=== PATIENT | female | born 1980 | race Caucasian/White ===

== ENCOUNTER 2018-11-26 05:26 | Observation (INO) | payer MEDICAID ==
[2018-11-26] MEDS ORDERED: LACTATED RINGERS 500 ML IV ONE (05:48)
[2018-11-26] MEDS ORDERED: LACTATED RINGERS 1,000 ML ONE ×4 (06:27→19:45)
[2018-11-26] MEDS ORDERED: CELESTONE SOLUSPAN IM ONE (07:10)
[2018-11-26 07:17] LABS: Bilirubin,Urine NEG (Negative); Blood,Urine MOD (Negative); Color,Urine Straw (Yellow); Mucus,Urine FEW /HPF; Protein,Urine <15 mg/dL mg/dL (Negative); Urobilinogen,Urine < 2.0 mg/dL (<2.0)
[2018-11-26] MEDS: BRETHINE SUB-Q SCH ×3 (07:34→09:28)
[2018-11-26 07:38] LABS: Hematocrit 35.5 % (30.3-42.9); Mean Corpuscular HGB Conc 34 % (30-34); Mean Corpuscular Volume 86 fl (79-97); Platelet Count 266 K/mm3 (140-440); Red Blood Count 4.14 M/mm3 (3.65-5.03); Red Cell Distribution Width 13.8 % (13.2-15.2)
[2018-11-26 07:49] LABS: INR 0.85 (0.87-1.13)
[2018-11-26 07:50] LABS: Partial Thromboplastin Time 29.1 Sec. (24.2-36.6)
--- NOTE | 2018-11-26 08:50 | Ultrasound Report ---
EXAM: US OB LIMITED HISTORY: R/O Abruption TECHNIQUE: Brennan scale imaging, duplex Doppler and color flow Doppler imaging are performed with a cur vilinear transducer. COMPARISON: None available. FINDINGS: There is a single IUP in cephalic presentation. The estimated heart rate is 176 beats per minut e. There is a anterior placenta, without evidence for placenta previa or abruption. The ovaries are not visualized. No free fluid is seen in the pelvis. IMPRESSION: 1. Single live in cephalic presentation. 2. The estimated heart rate is 176 beats per minute. 3. Anterior placenta without evidence for placental previa or abruption. This document is electronically signed by Ashley Hook MD., November 26 2018 08:48:22 AM ET
[2018-11-26] MEDS: DECADRON IM SCH ×2 (09:07→21:35)
[2018-11-26] MEDS: AMPICILLIN/NS 2 GM/100 ML 2 GM/100 ML BAG IV SCH ×4 (09:10→23:59)
--- NOTE | 2018-11-26 11:24 | History and Physical Report ---
History of Present Illness Date of examination: 11/26/18 Date of admission: 11/26/18 05:48 Chief complaint: bleeding and contractions History of present illness: This is a 37 yo at 35+4 weeks came in last night with c/o vaginal bleeding. patient stated that she went to bathroom and blood in toilet came in and no bleeding noted some dark blood in vaults. No active bleeding. She was also lizz q3 and was admitted for observation. her cervix was noted to be 1 cm. Past History Past Medical History: no pertinent history Past Surgical History: no surgical history Family/Genetic History: none Social history: single. denies: smoking, alcohol abuse, prescription drug abuse - Obstetrical History Expected Date of Delivery: 11/26/18 Actual Gestation: 40 Week(s) 0 Day(s) : 1 Para: 0 Hx # Term Pregnancies: 0 Number of Pregnancies: 0 Spontaneous Abortions: 0 Induced : 0 Number of Living Children: 0 Medications and Allergies Allergies Allergy/AdvReac Type Severity Reaction Status Date / Time No Known Allergies Allergy Unverified 11/26/18 05:48 Home Medications Medication Instructions Recorded Confirmed Last Taken Type Formula Tablet 1 tab PO DAILY 11/26/18 11/26/18 11/25/18 22:00 History Active Meds: Active Medications Dexamethasone (Decadron) 4 mg IM Q12HR [facility] Last Admin: 11/26/18 09:07 Dose: 4 mg Documented by: Ampicillin Sodium (Polycillin/Ns 2 Gm/100 Ml) 2 gm in 100 mls @ 100 mls/hr IV Q6HR [facility]; Protocol Last Admin: 11/26/18 09:10 Dose: 100 mls/hr Documented by: Terbutaline Sulfate (Brethine) 0.25 mg SUB-Q Q20MIN [facility] Stop: 11/28/18 07:01 Last Admin: 11/26/18 09:28 Dose: 0.25 mg Documented by: Review of Systems All systems: negative Genitourinary: vaginal bleeding, contractions - Vital Signs Vital signs: Vital Signs Pulse BP 101 H 106/71 11/26/18 05:46 11/26/18 05:46 Temp Pulse Resp BP Pulse Ox 96.7 F L 98 H 18 111/68 97 11/26/18 08:43 11/26/18 10:54 11/26/18 08:43 11/26/18 08:43 11/26/18 10:54 - Physical Exam Breasts: Positive: normal Cardiovascular: Regular rate, Normal S1 Lungs: Positive: Clear to auscultation, Normal air movement Abdomen: Positive: normal appearance, soft, normal bowel sounds. Negative: distention, tenderness, guarding Genitourinary (Female): Positive: normal external genitalia, normal perenium Uterus: Positive: normal size Deep Tendon Reflex Grade: Normal +2 - Obstetrical FHR: category 1 Cervical Dilatation: 1 Cervical Effacement Percentage: 40 station: -3 Uterine Contraction Pattern: Irregular Uterine Tone Measurement Phase: Contraction Uterine Contraction Intensity: Mild Results Result Diagrams: 11/26/18 07:23 Abnormal lab results 11/26/18 Range/Units 07:23 PT 12.1 L (12.2-14.9) Sec. INR 0.85 L (0.87-1.13) All other labs normal. Ultrasound: report reviewed Assessment and Plan A/P IUP 35+4 weeks GBS unknown- Amp started PT contractions; s/p terb x2 no change in cervix Dexa given x 1 and will need 4 doses for lung maturity close monitor of and maternal status consulted with high risk ( [facility])
[2018-11-27] MEDS ORDERED: LACTATED RINGERS 1,000 ML ONE (02:59)
[2018-11-27] MEDS ORDERED: LACTATED RINGERS 1,000 ML IV SCH (04:00)
[2018-11-27] MEDS: AMPICILLIN/NS 2 GM/100 ML 2 GM/100 ML BAG IV SCH (06:08)
--- NOTE | 2018-11-27 08:34 | Progress Note ---
Assessment and Plan - Patient Problems (1) Vaginal bleeding Current Visit: Yes Status: Acute Plan to address problem: patient remains clinically stable pelvic rest for duration of Subjective - Subjective Date of service: 11/27/18 Principal diagnosis: vaginal bleeding Interval history: Patient denies any further vaginal bleeding. She denies regular contractions. U/S did not demonstrate any evidence of abruption. Patient reports: no new complaints Objective - Vital Signs Vital Signs: Vital Signs - 12hr 11/27/18 11/27/18 11/27/18 00:02 02:01 02:06 Temperature Pulse Rate 72 71 70 Respiratory Rate Blood Pressure 106/56 O2 Sat by Pulse 98 97 Oximetry 11/27/18 11/27/18 11/27/18 02:11 02:16 02:22 Temperature Pulse Rate 73 71 70 Respiratory Rate Blood Pressure O2 Sat by Pulse 98 97 97 Oximetry 11/27/18 11/27/18 11/27/18 02:27 02:32 02:37 Temperature Pulse Rate 71 75 77 Respiratory Rate Blood Pressure O2 Sat by Pulse 97 97 96 Oximetry 11/27/18 11/27/18 11/27/18 02:42 02:50 02:55 Temperature Pulse Rate 71 83 73 Respiratory Rate Blood Pressure O2 Sat by Pulse 97 97 98 Oximetry 11/27/18 11/27/18 11/27/18 03:00 03:05 03:10 Temperature Pulse Rate 70 74 76 Respiratory Rate Blood Pressure O2 Sat by Pulse 97 97 97 Oximetry 11/27/18 11/27/18 11/27/18 03:15 03:20 03:25 Temperature Pulse Rate 75 67 74 Respiratory Rate Blood Pressure O2 Sat by Pulse 98 97 96 Oximetry 11/27/18 11/27/18 11/27/18 03:30 03:35 03:44 Temperature Pulse Rate 80 75 69 Respiratory Rate Blood Pressure O2 Sat by Pulse 96 96 99 Oximetry 11/27/18 11/27/18 11/27/18 03:49 03:54 03:59 Temperature Pulse Rate 69 73 75 Respiratory Rate Blood Pressure O2 Sat by Pulse 97 97 97 Oximetry 11/27/18 11/27/18 11/27/18 04:04 04:09 04:14 Temperature Pulse Rate 70 83 73 Respiratory Rate Blood Pressure O2 Sat by Pulse 97 98 97 Oximetry 03/11/19 03/11/19 03/11/19 04:18 04:19 04:20 Temperature 98 F Pulse Rate 73 74 Respiratory 16 Rate Blood Pressure 102/60 O2 Sat by Pulse 96 Oximetry 11/27/18 11/27/18 11/27/18 04:24 04:29 04:34 Temperature Pulse Rate 77 76 71 Respiratory Rate Blood Pressure O2 Sat by Pulse 97 96 97 Oximetry 11/27/18 11/27/18 11/27/18 04:39 04:44 05:00 Temperature Pulse Rate 74 78 Respiratory Rate Blood Pressure O2 Sat by Pulse 96 97 97 Oximetry 11/27/18 11/27/18 11/27/18 05:05 05:10 05:15 Temperature Pulse Rate 58 L 65 66 Respiratory Rate Blood Pressure O2 Sat by Pulse 98 98 97 Oximetry 11/27/18 11/27/18 11/27/18 05:20 05:25 05:30 Temperature Pulse Rate 72 70 74 Respiratory Rate Blood Pressure O2 Sat by Pulse 98 96 96 Oximetry 11/27/18 11/27/18 11/27/18 05:35 05:40 05:45 Temperature Pulse Rate 72 86 76 Respiratory Rate Blood Pressure O2 Sat by Pulse 98 97 96 Oximetry 11/27/18 11/27/18 11/27/18 05:47 05:50 05:55 Temperature Pulse Rate 76 70 79 Respiratory Rate Blood Pressure O2 Sat by Pulse 94 96 96 Oximetry 11/27/18 11/27/18 11/27/18 05:57 06:00 06:05 Temperature Pulse Rate 77 69 72 Respiratory Rate Blood Pressure O2 Sat by Pulse 94 96 96 Oximetry 11/27/18 11/27/18 11/27/18 06:10 06:15 06:20 Temperature Pulse Rate 77 78 81 Respiratory Rate Blood Pressure O2 Sat by Pulse 96 96 96 Oximetry 11/27/18 11/27/18 11/27/18 06:25 06:30 06:32 Temperature Pulse Rate 70 70 73 Respiratory Rate Blood Pressure O2 Sat by Pulse 97 97 93 Oximetry 11/27/18 11/27/18 11/27/18 06:35 06:40 06:45 Temperature Pulse Rate 70 71 74 Respiratory Rate Blood Pressure O2 Sat by Pulse 97 97 96 Oximetry 11/27/18 11/27/18 11/27/18 06:50 06:55 07:00 Temperature Pulse Rate 75 72 70 Respiratory Rate Blood Pressure O2 Sat by Pulse 96 97 98 Oximetry 11/27/18 11/27/18 11/27/18 07:05 07:10 07:15 Temperature Pulse Rate 72 68 80 Respiratory Rate Blood Pressure O2 Sat by Pulse 97 98 97 Oximetry 11/27/18 11/27/18 11/27/18 07:20 07:25 07:30 Temperature Pulse Rate 63 79 72 Respiratory Rate Blood Pressure O2 Sat by Pulse 96 97 98 Oximetry 11/27/18 11/27/18 11/27/18 07:35 07:40 07:50 Temperature Pulse Rate 69 69 76 Respiratory Rate Blood Pressure O2 Sat by Pulse 98 99 96 Oximetry 11/27/18 11/27/18 11/27/18 07:55 08:00 08:05 Temperature Pulse Rate 59 L 65 62 Respiratory Rate Blood Pressure O2 Sat by Pulse 98 97 97 Oximetry 11/27/18 11/27/18 11/27/18 08:11 08:25 08:30 Temperature Pulse Rate 71 74 82 Respiratory Rate Blood Pressure O2 Sat by Pulse 98 98 98 Oximetry - Labs Labs: Abnormal Labs 11/26/18 07:23 PT 12.1 L INR 0.85 L
--- NOTE | 2018-11-27 08:36 | Discharge Summary ---
Providers - Providers Date of Admission: 11/26/18 05:48 Date of discharge: 11/27/18 Attending physician: TEX DELVALLE MD Primary care physician: TEX DELVALLE MD Hospitalization Reason for admission: vaginal bleeding Discharge diagnosis: other (Bleeding in ) Hospital course: Patient admitted for vaginal bleeding. Ultrasound did not demonstrate an abruption. Patient received steroids during hospitalization. She remained clinically stable and bleeding ceased. Condition at discharge: Good Disposition: DC-01 TO HOME OR SELFCARE - Discharge Diagnoses (1) Vaginal bleeding Status: Acute Plan - Provider Discharge Summary Activity: no sex for 6 weeks, no heavy lifting 4 weeks, no strenuous exercise Diet: routine Instructions: routine Additional instructions: [] Smoking cessation referral if applicable(refer to patient education folder for contact #) [] Refer to [facility] Booklet Call your doctor immediately for: * Fever > 100.5 * Heavy vaginal bleeding ( >1 pad per hour) * Severe persistent headache * Shortness of breath * Reddened, hot, painful area to leg or breast * schedule OB visit in one week - Follow up plan
[2018-11-27 09:07] LABS: Hematocrit 32.9 % (30.3-42.9); Hemoglobin 11.2 gm/dl (10.1-14.3); Mean Corpuscular HGB Conc 34 % (30-34); Mean Corpuscular Volume 86 fl (79-97); Platelet Count 258 K/mm3 (140-440); Red Blood Count 3.82 M/mm3 (3.65-5.03); Red Cell Distribution Width 13.8 % (13.2-15.2)
[2018-11-27] MEDS: DECADRON IM SCH (09:30)
[2018-11-27] MEDS ORDERED: PRENATAL VITAMIN PO SCH (10:00)
[2018-11-27 11:28] VITALS: BP 106/58
== END 2018-11-27 11:50 | disposition home or self-care (01) ==
LOC: TRG 05:26 → LD 05:48 → TRG 08:34
PROVIDERS: ADMIT Obstetrics & Gynecology; ATTEND Obstetrics & Gynecology
DX: O62.9 Abnormality of forces of labor, unspecified (principal); O46.93 Antepartum hemorrhage, unspecified, third trimester; O48.0 Post-term pregnancy; Z3A.40 40 weeks gestation of pregnancy
CPT/HCPCS: 36415; 76815; 81001; 85027; 85610; 85730; 86850; 86900; 86901; 87116; 96365; 96366; 96372; G0378; J0290; J1100; J3105; J7120; 96360

== ENCOUNTER 2018-12-16 22:51 | Inpatient (IN) | payer MEDICAID ==
[2018-12-16] MEDS ORDERED: LACTATED RINGERS 1,000 ML ONE (23:50)
[2018-12-17] MEDS ORDERED: BRETHINE IVP PRN (01:38)
[2018-12-17] MEDS ORDERED: BRETHINE SUB-Q PRN (01:38)
[2018-12-17] MEDS ORDERED: MINERAL OIL PO PRN (01:38)
[2018-12-17] MEDS ORDERED: PITOCin/NS 20 UNIT/1000ML DRIP 20 UNITS/1,000 ML BAG IV SCH (02:00)
[2018-12-17] MEDS: AMPICILLIN/NS 1 GM/50 ML 1 GM/50 ML BAG IV SCH ×5 (02:47→18:47)
[2018-12-17] MEDS: LACTATED RINGERS 1,000 ML IV SCH ×3 (03:25→20:35)
[2018-12-17 04:13] LABS: Hematocrit 37.8 % (30.3-42.9); Hemoglobin 11.6 gm/dl (10.1-14.3); Mean Corpuscular Volume 96 fl (79-97); Red Blood Count 3.95 M/mm3 (3.65-5.03)
[2018-12-17 04:14] LABS: Mean Corpuscular HGB Conc 31 % (30-34); Platelet Count 318 K/mm3 (140-440)
[2018-12-17] MEDS: STADOL IV PRN ×2 (06:03→13:27)
--- NOTE | 2018-12-17 09:40 | History and Physical Report ---
History of Present Illness Date of examination: 12/17/18 Date of admission: 12/17/18 01:47 Chief complaint: I'm having contractions History of present illness: Pt is a 37 year old at 38 weeks, who presents with complaint of contractions and constant pain. Patient was reported to have changed her cervix in triage, however, she has had not had any further cervical change. Past History Past Medical History: no pertinent history Past Surgical History: no surgical history Social history: - Obstetrical History Expected Date of Delivery: 12/27/18 Actual Gestation: 38 Week(s) 4 Day(s) : 1 Medications and Allergies Allergies Allergy/AdvReac Type Severity Reaction Status Date / Time No Known Allergies Allergy Verified 12/16/18 23:09 Home Medications Medication Instructions Recorded Confirmed Last Taken Type Formula Tablet 1 tab PO DAILY 11/26/18 11/26/18 11/25/18 22:00 History Active Meds: Active Medications Butorphanol Tartrate (Stadol) 1 mg IV Q2H PRN PRN Reason: Pain, Moderate (4-6) Last Admin: 12/17/18 06:03 Dose: 1 mg Documented by: Ephedrine Sulfate (Ephedrine Sulfate) 10 mg IV Q2M PRN PRN Reason: Hypotension Ampicillin Sodium (Ampicillin/Ns 1 Gm/50 Ml) 1 gm in 50 mls @ 100 mls/hr IV Q4HR [facility]; Protocol Last Admin: 12/17/18 06:04 Dose: 100 mls/hr Documented by: Lactated Ringer's (Lactated Ringers) 1,000 mls @ 125 mls/hr IV DIRECT [facility] Last Admin: 12/17/18 03:25 Dose: 125 mls/hr Documented by: Oxytocin/Sodium Chloride (Pitocin/Ns 20 Unit/1000ml Drip) 20 units in 1,000 mls @ 125 mls/hr IV DIRECT [facility] Mineral Oil (Mineral Oil) 30 ml PO QHS PRN PRN Reason: Constipation Terbutaline Sulfate (Brethine) 0.25 mg SUB-Q ONCE PRN PRN Reason: Hyperstimulation/Hypertonicity Terbutaline Sulfate (Brethine) 0.25 mg IVP ONCE PRN PRN Reason: Hyperstimulation/Hypertonicity Review of Systems All systems: negative Ears, nose, mouth and throat: deferred Breasts: deferred Genitourinary: deferred - Vital Signs Vital signs: Vital Signs Pulse BP 92 H 109/73 12/16/18 23:08 12/16/18 23:08 Temp Pulse Resp BP Pulse Ox 97.0 F L 81 18 112/69 12/17/18 02:36 12/17/18 09:13 12/17/18 02:36 12/17/18 09:13 - Physical Exam Breasts: Cardiovascular: Regular rate, Normal S1, Normal S2 Lungs: Positive: Clear to auscultation, Normal air movement Abdomen: Positive: normal appearance, soft, normal bowel sounds. Negative: distention, tenderness Genitourinary (Female): Positive: normal external genitalia, normal perenium Vulva: both: normal Vagina: Positive: normal moisture. Negative: discharge Cervix: Negative: lesion, discharge Uterus: Positive: normal size, normal contour Adnexa: both: normal Anus/Rectum: Positive: normal perianal skin, heme negative. Negative: rectal mass, hemorrhoids Extremities: Deep Tendon Reflex Grade: Normal +2 - Obstetrical FHR: auscultation normal Cervical Dilatation: 2.5 Cervical Effacement Percentage: 80 station: -2 Uterine Contraction Frequency (min): 4 Uterine Contraction Pattern: Regular Uterine Contraction Intensity: Moderate Results Result Diagrams: 12/17/18 03:10 Abnormal lab results 12/17/18 Range/Units 03:10 WBC 11.8 H (4.5-11.0) K/mm3 RDW 27.0 H (13.2-15.2) % All other labs normal. Assessment and Plan IUP at 38.4 weeks in very early labor. Admit for augmentation of labor as patient states the pain is too intense to go home. Anticipate .
[2018-12-17] MEDS ORDERED: PRENATAL VITAMIN PO NR (10:04)
[2018-12-17] MEDS ORDERED: NARCAN 2 MG/2 ML IV PRN (19:34)
--- NOTE | 2018-12-17 19:34 | Anesthesia Consultation ---
Anesthesia Consult and Med Hx Date of service: 12/17/18 - Airway Anesthetic Teeth Evaluation: Good ROM Head & Neck: Adequate Mental/Hyoid Distance: Adequate Mallampati Class: Class II Intubation Access Assessment: Probably Good - Pulmonary Exam CTA: Yes - Cardiac Exam Cardiac Exam: RRR - Pre-Operative Health Status ASA Pre-Surgery Classification: ASA2 Proposed Anesthetic Plan: Epidural - Pulmonary Hx Asthma: No COPD: No Hx Pneumonia: No - Cardiovascular System Hx Hypertension: No - Central Nervous System Hx Seizures: No Hx Psychiatric Problems: No - Endocrine Hx Renal Disease: No Hx End Stage Renal Disease: No Hx Hypothyroidism: No Hx Hyperthyroidism: No - Hematic Hx Anemia: No Hx Sickle Cell Disease: No - Other Systems Hx Alcohol Use: No
[2018-12-17] MEDS ORDERED: XYLOCAINE 2%/ EPI 1:200,000 INFILTRATI ONE (20:50)
[2018-12-17] MEDS: fentaNYL-BUPIV 2 MCG/ML-0.125% 200 MCG/100 ML BAG EPIDURAL SCH (21:19)
[2018-12-18] MEDS: AMPICILLIN/NS 1 GM/50 ML 1 GM/50 ML BAG IV SCH ×2 (02:49→06:23)
[2018-12-18] MEDS: fentaNYL-BUPIV 2 MCG/ML-0.125% 200 MCG/100 ML BAG EPIDURAL SCH (05:07)
[2018-12-18] MEDS: LACTATED RINGERS 1,000 ML IV SCH ×2 (06:23→22:17)
[2018-12-18] MEDS ORDERED: REGLAN IV ONE (12:56)
[2018-12-18] MEDS ORDERED: PEPCID IV ONE ×2 (12:56→13:03)
[2018-12-18] MEDS ORDERED: BICITRA PO ONE (12:56)
[2018-12-18] MEDS ORDERED: PITOCin/NS 20 UNIT/1000ML DRIP 20 UNITS/1,000 ML BAG IV SCH ×2 (13:00→16:00)
[2018-12-18] MEDS ORDERED: ANCEF/STERILE WATER 2 GM/20 ML 2 GM/20 ML SYRINGE IV NR (13:00)
[2018-12-18] MEDS ORDERED: LACTATED RINGERS 1,000 ML IV SCH (13:00)
--- NOTE | 2018-12-18 13:01 | Event Note ---
Date: 12/18/18 Patient noted to be complete at 0900 and commenced to pushing. Despite pushing minimal descent. Discussed need for primary csec for failure to progress. We discussed r/b/a which include bleedign, infection, damage to pelvic and non pelvic organ. risk of hysterectomy and . patient understands and will proceed with csec. Consents signed
[2018-12-18] MEDS ORDERED: REGLAN ONE (13:02)
[2018-12-18] MEDS ORDERED: ANCEF/STERILE WATER 2 GM/20 ML 2 GM/20 ML SYRINGE IV ONE (13:03)
[2018-12-18] MEDS ORDERED: XYLOCAINE MPF 2% ONE ×4 (13:23→13:45)
[2018-12-18] MEDS ORDERED: DIPRIVAN 10 MG/ML IV ONE (13:47)
[2018-12-18] MEDS ORDERED: SUBLIMAZE ONE (13:50)
[2018-12-18] MEDS ORDERED: KETALAR ONE (13:51)
[2018-12-18] MEDS ORDERED: METHERGINE IM ONE ×2 (14:00→14:01)
--- NOTE | 2018-12-18 15:10 | Procedure Note ---
OB Delivery Note - Delivery Date of Delivery: 12/18/18 Surgeon: TEX DELVALLE - Section Preop diagnosis: arrest of descent Postop diagnosis: same section procedure: section Disposition: PACU Complications: none Narrative: see op note - A at 1 minute: 6 at 5 minutes: 9 Infant Gender: Male
[2018-12-18] MEDS ORDERED: LANSINOH TP PRN (15:13)
[2018-12-18] MEDS ORDERED: TYLENOL PO PRN (15:13)
[2018-12-18] MEDS ORDERED: PERCOCET 5/325 PO PRN (15:13)
[2018-12-18] MEDS ORDERED: MORPHINE IV PRN ×2 (15:13)
[2018-12-18] MEDS ORDERED: NARCAN 0.4 MG/1 ML IV PRN ×3 (15:13→15:35)
[2018-12-18] MEDS ORDERED: PHENERGAN PR PRN (15:13)
[2018-12-18] MEDS ORDERED: NORCO 5/325 PO PRN (15:13)
[2018-12-18] MEDS ORDERED: ANUCORT-HC PR PRN (15:13)
[2018-12-18] MEDS ORDERED: SENOKOT PO PRN (15:13)
[2018-12-18] MEDS ORDERED: TORADOL IV PRN (15:13)
[2018-12-18] MEDS ORDERED: MYLICON PO PRN (15:13)
[2018-12-18] MEDS ORDERED: TUCKS PAD TP PRN (15:13)
[2018-12-18] MEDS ORDERED: MILK OF MAGNESIA PO PRN (15:13)
--- NOTE | 2018-12-18 15:13 | Operative Report ---
Operative Report Operative Report: DATE OF OPERATION: 12/18/2018 PREOPERATIVE DIAGNOSES: 1. Intrauterine gestation at 38 weeks, in active labor, second stage. 2. Arrest of descent. 3. Persistent occiput posterior position. POSTOPERATIVE DIAGNOSES: 1. Intrauterine gestation at 38 weeks, in active labor, second stage. 2. Arrest of descent. 3. Persistent occiput posterior position. OPERATION PERFORMED: Primary low transverse section. SURGEON: kristyn Silveira MD ANESTHESIA: Epidural. COMPLICATIONS: None. ESTIMATED BLOOD LOSS: 800 mL. DRAINS: Morin catheter to the bladder. SPECIMENS TO PATHOLOGY: Cord blood for routine testing. OPERATIVE FINDINGS: A viable male infant with Apgars of 6 and 9 and birthweight of 7 pounds 14 ounces was delivered from a cephalic presentation, persistent occiput posterior position. There was marked caput and molding present on the head. The cord contained 3 vessels. There was normal anterior fundal placenta. The amniotic fluid was clear. The uterus, fallopian tubes and ovaries were normal. DESCRIPTION OF OPERATION: The patient was brought to the operating suite in stable condition with epidural anesthesia on board and an indwelling catheter in place in the bladder. The patient was placed supine on the operating room table and rolled to her left side with a wedge. The abdomen was prepped and draped in standard fashion for section. After testing with forceps to assure an adequate anesthetic level, the surgery was commenced. We had counseled the patient extensively regarding the risks of the surgery including but not limited to stroke, embolus, phlebitis, pain, infection, hemorrhage, as well as injury to the and the internal organs such as the bowel, bladder, blood vessels, nerves, kidneys, ureters and pelvic organs. The patient was aware of the postoperative morbidity issues and recovery timeframes. The patient was aware she can form adhesions, which can result in obstruction of loop of bowel or ureter or chronic pain. She was aware that should she have hemorrhage and require blood transfusion, there was a small chance for exposure to hepatitis or HIV disease. With the scalpel, a Pfannenstiel skin incision was made. Dissection was carried down sharply through the subcutaneous tissues and fascia in a transverse plane with the scalpel, electrocautery and curved Ashton scissors. The fascia was sharply freed up superiorly and inferiorly from the underlying rectus muscles, which were bluntly and sharply divided. The peritoneum was entered carefully in a clear space with a curved hemostat. The peritoneal incision was then extended vertically with Metzenbaum scissors. A retractor and bladder blade were placed. A bladder flap was created by incising transversely through the peritoneum and vesicouterine fold and then bluntly dissecting the bladder distally. With the scalpel, a low transverse hysterotomy was commenced. The serosa and myometrium were scored with the scalpel. The uterine cavity was actually entered bluntly with a curved hemostat. The uterine incision was then extended laterally with the pickling tank operator's fingers. An intrauterine hand was placed and the head of the was brought up out of the pelvis into the uterine incision. With fundal pressure, he was delivered without difficulty. The nasopharynx and oropharynx were suctioned. The cord was doubly clamped and transected. The infant was then handed off to the nursery personnel. Apgars were good at 8 and 9. A cord pH was obtained, which subsequently revealed a normal value. Further cord blood was collected for routine testing. Intravenous Pitocin and antibiotics were administered. The placenta was manually removed. The uterine cavity was then curetted with a dry sponge and freed of the remaining membranes. The edges of the uterine incision were grasped with Gillespie clamps. With the massage and the Pitocin, the uterus began to firm up normally. The uterine incision was then closed in 2 layers of 0 Vicryl sutures. The first suture was placed to the endometrium and myometrium. The second suture was placed through the endopelvic fascia and also reincorporated the bladder flap peritoneum. Peritoneal lavage was then per formed. The pelvis and gutters were irrigated and suctioned and cleared of all blood and clots and amniotic fluid. The uterine incision was reinspected to assure hemostasis. The uterus, tubes and ovaries were inspected and were normal. Once we were satisfied with the hemostasis, attention was turned to closure of the abdominal incision. The peritoneum, muscles and fascia were closed in layers using 0-Vicryl sutures. The subcutaneous tissue was closed with 3-0 plain sutures. The skin was closed with a subcuticular suture of 4-0 Vicryl followed by benzoin, Steri-Strips and a Telfa dressing. The patient was moved to the recovery room in stable condition with the Morin catheter draining clear urine. Instruments, sponge and needle counts were reported as correct. Estimated blood loss was 800 mL. There were no complications.
[2018-12-18] MEDS ORDERED: ZOFRAN IV PRN (15:35)
[2018-12-18] MEDS ORDERED: BENADRYL IV PRN (15:35)
[2018-12-18] MEDS ORDERED: DILAUDID PCA 6MG/30ML IV SCH (16:00)
[2018-12-18] MEDS ORDERED: SODIUM CHLORIDE FLUSH SYRINGE 10 ML IV NR (16:00)
[2018-12-18] MEDS ORDERED: NACL 0.9% 1000 ML 1,000 ML IV SCH (16:00)
[2018-12-19] MEDS ORDERED: M-M-R II VACCINE SUB-Q ONE (06:00)
[2018-12-19] MEDS ORDERED: BOOSTRIX IM ONE (06:00)
[2018-12-19 06:37] LABS: Hemoglobin 9.2 gm/dl (10.1-14.3)
--- NOTE | 2018-12-19 07:56 | Progress Note ---
Assessment and Plan A: POD#1 s/p primary section at term, Anemia P: Routine postop care Subjective - Subjective Date of service: 12/19/18 Principal diagnosis: s/p primary section Interval history: Pt complaining of pain this morning. She just voided a few minutes ago. No flatus. She is asking to eat. Patient reports: appetite normal, voiding normally, ambulating normally (to bathroom ), no flatus, no bowel movement Pax: doing well Objective - Vital Signs Latest vital signs: Vital Signs Temp Pulse Resp BP BP Pulse Ox 12/19/18 05:30 18 12/19/18 04:10 98.0 F 98 H 20 116/66 100 12/19/18 00:00 99.1 F 99 H 20 103/63 99 12/18/18 20:00 98.2 F 85 20 119/65 98 12/18/18 17:41 97.5 F L 77 24 118/65 99 12/18/18 17:00 88 18 121/64 100 12/18/18 16:00 78 114/69 100 12/18/18 15:45 77 21 115/66 100 12/18/18 15:30 76 18 119/68 100 12/18/18 15:15 74 21 126/69 100 12/18/18 15:10 75 24 125/67 100 12/18/18 15:05 72 20 128/67 100 12/18/18 15:00 74 25 H 121/66 98 12/18/18 14:54 99.8 F H 72 19 120/69 98 12/18/18 13:02 93 H 129/64 12/18/18 13:00 98.7 F 12/18/18 12:04 111 H 130/89 12/18/18 11:32 113 H 125/93 12/18/18 11:03 96 H 123/85 12/18/18 11:00 98.2 F 12/18/18 10:03 105 H 131/76 12/18/18 09:33 93 H 120/71 12/18/18 09:01 99 H 124/70 12/18/18 09:00 98.5 F 12/18/18 08:33 90 119/76 12/18/18 08:03 93 H 124/72 Intake and Output 12/18/18 12/19/18 12/19/18 22:59 06:59 14:59 Intake Total 640 Output Total 900 600 Balance -260 -600 Intake: IV 400 Oral 240 Output: Urine 900 600 Indwelling Catheter 300 600 Uretheral (Morin) 300 Other: Total, Intake Amount 240 Total, Output Amount 300 600 Estimated Blood Loss 800 - Exam Breasts: Present: deferred Cardiovascular: Present: Regular rate Lungs: Present: Clear to auscultation Abdomen: Present: soft, abnormal bowel sounds (hypoactive ) Uterus: Present: fundal height at umbilicus Extremities: Present: edema (trace ) Incision: Present: dressed - Labs Labs: Abnormal lab results 12/19/18 Range/Units 06:07 Hgb 9.2 L (10.1-14.3) gm/dl Hct 28.0 L D (30.3-42.9) %
[2018-12-19] MEDS: SENOKOT S PO SCH (10:06)
[2018-12-19] MEDS: FEOSOL PO SCH (10:06)
[2018-12-19] MEDS: IBUPROFEN PO PRN ×2 (10:07→17:37)
[2018-12-19] MEDS: PRENATAL VITAMIN PO SCH (10:15)
[2018-12-19] MEDS: PERCOCET 5/325 PO PRN ×2 (12:46→23:29)
[2018-12-19] MEDS: MILK OF MAGNESIA PO SCH (12:49)
[2018-12-20] MEDS: SENOKOT S PO SCH ×3 (01:00→21:49)
[2018-12-20] MEDS: PERCOCET 5/325 PO PRN ×3 (05:37→23:36)
[2018-12-20] MEDS: MILK OF MAGNESIA PO SCH ×4 (06:29→21:50)
--- NOTE | 2018-12-20 07:55 | Progress Note ---
Assessment and Plan A/P POD2 s/p csec for failure to descend doing well current post op orders discharge home tomorrow Subjective - Subjective Date of service: 12/20/18 Principal diagnosis: s/p primary section Patient reports: appetite normal, voiding normally, pain well controlled, flatus, ambulating normally [place]: doing well Objective - Vital Signs Latest vital signs: Vital Signs Temp Pulse Resp BP BP Pulse Ox 12/20/18 05:37 20 12/20/18 00:05 98.0 F 91 H 16 110/60 96 12/19/18 18:37 18 12/19/18 15:34 98.2 F 87 18 117/61 12/19/18 12:11 98.9 F 81 18 103/81 Intake and Output 12/19/18 12/19/18 12/20/18 15:59 23:59 07:59 Intake Total 960 300 Balance 960 300 Intake: Oral 960 Intake, Free Water 300 Other: Total, Intake Amount 480 - Exam Breasts: Present: normal Cardiovascular: Present: Regular rate, Normal S1 Lungs: Present: Clear to auscultation, Normal air movement Abdomen: Present: normal appearance, soft, normal bowel sounds. Absent: distention, tenderness, guarding Uterus: Present: normal, firm, fundal height below umbilicus. Absent: bogginess, tenderness Extremities: Present: normal Deep Tendon Reflex Grade: Normal +2 Incision: Present: normal, dry, intact
[2018-12-20] MEDS: PRENATAL VITAMIN PO SCH (09:31)
[2018-12-20] MEDS: FEOSOL PO SCH (09:32)
[2018-12-20] MEDS: IBUPROFEN PO PRN ×2 (09:36→21:17)
[2018-12-21] MEDS: IBUPROFEN PO PRN ×2 (03:20→09:17)
[2018-12-21] MEDS: PERCOCET 5/325 PO PRN ×2 (03:20→09:16)
[2018-12-21] MEDS: MILK OF MAGNESIA PO SCH (03:22)
[2018-12-21 09:15] VITALS: BP 119/67
[2018-12-21] MEDS: SENOKOT S PO SCH (09:18)
[2018-12-21] MEDS: PRENATAL VITAMIN PO SCH (09:18)
[2018-12-21] MEDS: FEOSOL PO SCH (09:18)
--- NOTE | 2018-12-21 12:47 | Progress Note ---
Assessment and Plan A/P POD3 s/p csec for failure to descend doing well current post op orders discharge home today Subjective - Subjective Date of service: 12/21/18 Principal diagnosis: s/p primary section Patient reports: appetite normal, voiding normally, pain well controlled, flatus, ambulating normally : doing well Objective - Vital Signs Latest vital signs: Vital Signs Temp Pulse Resp BP BP Pulse Ox 12/21/18 09:17 19 12/21/18 09:16 19 12/21/18 08:34 97.4 F L 87 16 119/67 98 12/21/18 03:20 18 12/21/18 00:46 98.0 F 83 18 123/70 97 12/20/18 23:36 18 12/20/18 21:17 18 12/20/18 16:44 98.4 F 100 H 18 118/69 12/20/18 16:03 98 H 98 Intake and Output 12/20/18 12/21/18 12/21/18 23:59 07:59 15:59 Other: # Bowel Movements 3 - Exam Breasts: Present: normal Cardiovascular: Present: Regular rate, Normal S1 Lungs: Present: Clear to auscultation, Normal air movement Abdomen: Present: normal appearance, soft, normal bowel sounds. Absent: distention, tenderness, guarding Vulva: both: normal Uterus: Present: normal, firm, fundal height below umbilicus. Absent: bogginess, tenderness Deep Tendon Reflex Grade: Normal +2 Incision: Present: normal, dry, intact
--- NOTE | 2018-12-21 12:48 | Discharge Summary ---
Providers - Providers Date of Admission: 12/17/18 01:47 Date of discharge: 12/21/18 Attending physician: TEX DELVALLE MD Primary care physician: TEX DELVALLE MD Hospitalization Reason for admission: active labor Delivery: Procedure: section, primary low transverse Episiotomy: none Laceration: none Incision: normal, dry, intact Other procedures: none Discharge diagnosis: IUP at term delivered baby: male Hospital course: Patient admitted in labor. Endured csec for failure to descend. unremarkable hospital course. D/C home post op day 3. f/u in 2 weeks for incision check Disposition: DC-30 STILL A PATIENT Plan - Discharge Medications Prescriptions: Ferrous Sulfate [Feosol 325 MG tab] 325 mg PO TID #60 tablet Ibuprofen [Motrin] 600 mg PO Q8H PRN #30 tablet PRN Reason: Pain oxyCODONE /ACETAMINOPHEN [Percocet 5/325] 1 tab PO Q6HR PRN #30 tablet PRN Reason: Pain - Provider Discharge Summary Activity: routine, no sex for 6 weeks, no strenuous exercise Diet: routine Instructions: routine Additional instructions: [] Smoking cessation referral if applicable(refer to patient education folder for contact #) [] Refer to [facility]'s [facility] Booklet Call your doctor immediately for: * Fever > 100.5 * Heavy vaginal bleeding ( >1 pad per hour) * Severe persistent headache * Shortness of breath * Reddened, hot, painful area to leg or breast * Drainage or odor from incision. * Keep incision clean and dry at all times and follow doctor's instructions regarding bathing/showering - Follow up plan Follow up: TEX DELVALLE MD [Primary Care Provider] - 14 Days
== END 2018-12-21 13:30 | disposition home or self-care (01) | DRG 766 ==
LOC: TRG 22:51 → LD 12-17 01:47 → OB 12-18 17:42
PROVIDERS: ADMIT Obstetrics & Gynecology; ATTEND Obstetrics & Gynecology
PROC: 10D00Z1 Extraction of Products of Conception, Low, Open Approach (ICD-10-PCS; principal; 2018-12-18)
PROC: 3E0234Z Introduction of Serum, Toxoid and Vaccine into Muscle, Percutaneous Approach (ICD-10-PCS; 2018-12-19)
DX: O62.0 Primary inadequate contractions (principal); O64.0XX0 Obstructed labor due to incomplete rotation of fetal head, not applicable or unspecified; Z3A.38 38 weeks gestation of pregnancy; Z37.0 Single live birth; Z23 Encounter for immunization
CPT/HCPCS: 36415; 85014; 85018; 85027; 86592; 86850; 86900; 86901; 88307; G0378; C1765; C9250; J0290; J0595; J0690; J1170; J2210; J2590; J2704; J2765; J3010; J7120